=== PATIENT | male | born 1995 | race Caucasian/White ===

== ENCOUNTER 2017-08-24 20:51 | Emergency (ER) | payer OTHER ==
[2017-08-24] MEDS ORDERED: NORMAL SALINE 1000 ML 1,000 ML IV ONE ×2 (21:41→23:32)
[2017-08-24] MEDS ORDERED: LORAZEPAM INJ 2 MG/1 ML VIAL IV ONE ×2 (21:41→23:08)
--- NOTE | 2017-08-24 21:46 | ER Document Report ---
ED General - General TRAVEL OUTSIDE OF THE [place] 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 He states his chest intermittently feels tight. He denies specific pain in his chest, shortness of breath, he states he has not vomited although he feels nauseated. Symptoms started this evening, he states he felt a little "off" earlier in the day but before that he felt fine. He denies caffeine, any supplements, he denies any alcohol, denies any recreational drugs, denies any daily medications, denies smoking, denies any medical history. He denies taking anything tonight. He denies any history of similar symptoms. (ROLAND SRINIVASAN) - Related Data Allergies/Adverse Reactions: No Known Allergies Allergy (Unverified 08/24/17 20:53) Past Medical History - General Information source: Patient - Social History Smoking Status: Never Smoker Frequency of alcohol use: None Drug Abuse: None Lives with: Family Family History: Reviewed & Not Pertinent - Medical History Medical History: Negative Surgical Hx: Negative - Immunizations Immunizations up to date: Yes Hx Diphtheria, Pertussis, Tetanus Vaccination: Yes <ROLAND SRINIVASAN - Last Filed: 08/25/17 07:06> Review of Systems - Review of Systems Constitutional: See HPI EENT: No symptoms reported Cardiovascular: See HPI Respiratory: No symptoms reported Gastrointestinal: No symptoms reported Genitourinary: No symptoms reported Male Genitourinary: No symptoms reported Musculoskeletal: No symptoms reported Skin: No symptoms reported Hematologic/Lymphatic: No symptoms reported Neurological/Psychological: See HPI <ROLAND SRINIVASAN - Last Filed: 08/25/17 07:06> Physical Exam - Vital signs Interpretation: Normal - General General appearance: Alert, Anxious In distress: Moderate - Patient shaky and anxious in appearance - HEENT Head: Normocephalic, Atraumatic Eyes: Normal Pupils: PERRL - Respiratory Respiratory status: No respiratory distress Chest status: Nontender Breath sounds: Normal Chest palpation: Normal - Cardiovascular Rhythm: Regular, Tachycardia Heart sounds: Normal auscultation, S1 appreciated, S2 appreciated Murmur: No - Abdominal Inspection: Normal Distension: No distension Bowel sounds: Normal Tenderness: Nontender Organomegaly: No organomegaly - Back Back: Normal, Nontender - Extremities General upper extremity: Normal inspection, Nontender, Normal color, Normal ROM , Normal temperature General lower extremity: Normal inspection, Nontender, Normal color, Normal ROM , Normal temperature, Normal weight bearing. 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 Sensory: Normal - Psychological Associated symptoms: Anxious - Skin Skin Temperature: Warm Skin Moisture: Dry Skin Color: Normal <ROLAND SRINIVASAN - Last Filed: 08/25/17 07:06> - Vital signs Vitals: Temp Pulse Resp BP Pulse Ox 98.9 F 146 H 20 175/102 H 100 08/24/17 21:08 08/24/17 21:08 08/24/17 21:08 08/24/17 21:08 08/24/17 21:08 Course - Laboratory Result Diagrams: 08/24/17 21:47 08/24/17 21:47 <ROLAND SRINIVASAN - Last Filed: 08/25/17 07:06> - Laboratory Result Diagrams: 08/24/17 21:47 08/24/17 21:47 <KIA STEVE - Last Filed: 08/25/17 09:18> - Re-evaluation Re-evalutation: Patient tachycardic, has dilated pupils, appears anxious. Clear lungs, alert and oriented, unremarkable examination otherwise. Appears to be substance ingestion. 08/24/17 23:00 Patient initially told me that he has taken nothing. Patient denied alcohol but he does have a serum alcohol of 11. He states that he did drink beer despite what he told me earlier. He states that he also took 2 Advil, he denies taking anything else. Chest x-ray unremarkable. CBC and chemistry generally unremarkable. 08/25/17 02:10 Patient given 2 mg more of IV Ativan. After this tachycardia finally resolved, patient resting quietly. Clinical picture and presentation along with response to treatment is most consistent with substance abuse. Patient began bleeding from the right nare for a brief period which then resolved. Suggests cocaine use, no trauma, patient states he has had nosebleed in the past, nosebleed stopped quickly. He denies headache. He felt nauseated for a brief period. Discussed with Dr. Mancilla, he agrees with treatment, recommends adding KUB. Tachycardia continues to have resolved, patient is sleeping soundly, protecting airway, no change on reevaluation, sleeping and easily arousable. 08/25/17 05:00 On reexamination patient states he feels a lot better, when he stands he still feels somewhat lightheaded and his heart rate goes up in the 120s and 130s still. Will give additional fluid and give him more time. He still denies any recreational drugs. Drug screen is negative, however this is not a definite test. He is denying any chest pain or shortness of breath. Still have a low suspicion of pulmonary embolism, aortic dissection, ACS based on his presentation, age, reported symptoms, monitoring. (ROLAND SRINIVASAN) 08/25/17 09:15 I spent 15 minutes taking history again at 710 this morning to try to discern what is going on with this patient. His heart rate is 80s normal sinus rhythm until I walked in the room and it goes up to 130. 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 He states that he is under stress and has some feelings of panic but is not sure why he denies drug use. He is a 9-month-old and his has a new job in [place] for 2 weeks. He is getting very little sleep 2-3 hours and is now drinking monster drinks 2 a day which he did not use to do. midday after he got off work and picked up his he tried to go to sleep about 7 and would wake up alarmed, feeling short of breath. He is complaining of a 4/5 frontal headache with vertigo and the headache is now 1-1/2/5 after Compazine and Benadryl and Toradol. When I am sitting and talking with him initially his heart rate is 130 then he will go down to 117 as we talk. He appears very anxious shaking his leg but he cannot identify any psychological issues that is causing this. I discussed the case with Dr. Sonya rodrigues in again and we will be sending home and will have him follow-up with his sick call. I will recommend that he does not drink any monster drinks or any caffeine. BP 103/57. 08/25/17 09:18 (KIA STEVE) - Vital Signs Vital signs: Temp Pulse Resp BP Pulse Ox 98.9 F 146 H 17 105/57 L 96 08/24/17 21:08 08/24/17 21:08 08/25/17 09:00 08/25/17 09:00 08/25/17 09:00 - Laboratory Laboratory results interpreted by me: 08/24/17 21:47 Sodium 147.5 H Chloride 109 H ALT 15 L Salicylates < 1.0 L Acetaminophen < 10 L Discharge <ROLAND SRINIVASAN - Last Filed: 08/25/17 07:06> <KIA STEVE - Last Filed: 08/25/17 09:18> - Discharge Clinical Impression: Tachycardia Condition: Stable Disposition: HOME, SELF-CARE Additional Instructions: Rest. Avoid any stimulating substances for now including caffeine. Avoid any recreational substances such as cocaine, methamphetamine, etc. Follow up with primary care within the next several days or at least a week for a recheck and additional management. Return if you worsen including chest pain, difficulty breathing, passing out, fever, or any other concerning symptoms.
[2017-08-24 21:58] LABS: ABSOLUTE LYMPHOCYTES (AUTO) 2.1 10^3/uL (0.5-4.7); ABSOLUTE MONOCYTES (AUTO) 0.4 10^3/uL (0.1-1.4); ABSOLUTE NEUT (AUTO) 3.6 10^3/uL (1.7-8.2); BASOPHILS % (AUTO) 0.3 % (0-2); EOSINOPHILS % (AUTO) 0.5 % (0-6); HEMATOCRIT 44.3 % (37.9-51.0); HEMOGLOBIN 15.6 g/dL (13.5-17.0); HGB HCT DIFFERENCE 2.5; LYMPHOCYTES % (AUTO) 34.3 % (13-45); MEAN CORPUSCULAR HEMOGLOBIN 31.1 pg (27.0-33.4); MEAN CORPUSCULAR HGB CONC 35.3 g/dL (32.0-36.0); MEAN CORPUSCULAR VOLUME 88 fl (80-97); MONOCYTES % (AUTO) 6.8 % (3-13); RED BLOOD COUNT 5.02 10^6/uL (4.35-5.55); RED CELL DISTRIBUTION WIDTH 12.7 % (11.5-14.0); SEGMENTED NEUTROPHILS % (AUTO) 58.1 % (42-78); WHITE BLOOD COUNT 6.2 10^3/uL (4.0-10.5)
[2017-08-24 22:12] LABS: ALANINE AMINOTRANSFERASE 15 U/L (21-72); ALBUMIN 4.9 g/dL (3.5-5.0); ALCOHOL 11 mg/dL (NONE DETECTED); ALKALINE PHOSPHATASE 73 U/L (38-126); ANION GAP 14 (5-19); ASPARTATE AMINO TRANSFERASE 19 U/L (17-59); BILIRUBIN,DIRECT 0.2 mg/dL (0.0-0.4); BLOOD UREA NITROGEN 10 mg/dL (7-20); CALCIUM 9.8 mg/dL (8.4-10.2); CARBON DIOXIDE 25 mmol/L (22-30); CHLORIDE 109 mmol/L (98-107); CREATININE RESULT 0.91 mg/dL (0.52-1.25); GLUCOSE 94 mg/dL (75-110); POTASSIUM 3.7 mmol/L (3.6-5.0); SODIUM 147.5 mmol/L (137-145); TOTAL PROTEIN 7.7 g/dL (6.3-8.2)
--- NOTE | 2017-08-24 22:31 | RADIOLOGY REPORT (SQ) ---
EXAM DESCRIPTION: CHEST SINGLE VIEW COMPLETED DATE/TIME: 08/24/2017 10:14 pm REASON FOR STUDY: chest tightness, tachycardia COMPARISON: None. EXAM PARAMETERS: NUMBER OF VIEWS: One view. TECHNIQUE: Single frontal radiographic view of the chest acquired. RADIATION DOSE: NA LIMITATIONS: None. FINDINGS: LUNGS AND PLEURA: No opacities, masses or pneumothorax. No pleural effusion. MEDIASTINUM AND HILAR STRUCTURES: No masses. Contour normal. HEART AND VASCULAR STRUCTURES: Heart normal in size. Normal vasculature. BONES: No acute findings. HARDWARE: None in the chest. OTHER: No other significant finding. IMPRESSION: NO ACUTE RADIOGRAPHIC FINDING IN THE CHEST. TECHNICAL DOCUMENTATION: JOB ID: [id number] [place]-72 2010 [employer]- All Rights Reserved
[2017-08-24 23:30] LABS: URINE BARBITURATES SCREEN NEGATIVE; URINE METHADONE SCREEN NEGATIVE; URINE OPIATES LOW NEGATIVE; URINE PHENCYCLIDINE SCREEN NEGATIVE
[2017-08-25] MEDS ORDERED: LORAZEPAM INJ 2 MG/1 ML VIAL IV ONE (00:43)
--- NOTE | 2017-08-25 03:14 | RADIOLOGY REPORT (SQ) ---
EXAM DESCRIPTION: KUB/ABDOMEN (SINGLE VIEW) CLINICAL HISTORY: 21 years, Male, vomiting COMPARISON: None. NUMBER OF VIEWS: 2 LIMITATIONS: None. FINDINGS: No dilated bowel. No abnormal calcification. Partially imaged penis shaped 6 x 15 cm opacity overlies the lower pelvis may indicate penile/foreign body artifact. Intact bony structures. IMPRESSION: No acute findings. Indeterminate, partially imaged 6 x 15 cm opacity overlies the lower pelvis and may indicate penile/foreign body artifact. 2011 [employer]- All Rights Reserved
[2017-08-25] MEDS ORDERED: NORMAL SALINE 1000 ML 1,000 ML IV ONE (05:16)
[2017-08-25] MEDS ORDERED: DIPHENHYDRAMINE HCL 50 MG/ML VIAL IV ONE (07:41)
[2017-08-25] MEDS ORDERED: PROCHLORPERAZINE EDISYLATE INJ 10 MG/2 ML VIAL IV ONE (07:41)
[2017-08-25] MEDS ORDERED: KETOROLAC TROMETHAMINE INJ/PF 30 MG/1 ML SDV IV ONE (07:41)
--- NOTE | 2017-08-25 07:50 | EKG REPORT ---
SEVERITY:- ABNORMAL ECG - SINUS TACHYCARDIA WITH IRREGULAR RATE [id number] KEITH, CONSIDER BIATRIAL ABNORMALITIES IRBBB AND LPFB : Confirmed by: Naeem Reddy MD 25-Aug-2017 07:48:41
[2017-08-25 09:11] VITALS: BP 105/57
== END 2017-08-25 09:30 | disposition home or self-care (01) ==
LOC: ER 20:51
DX: F41.9 Anxiety disorder, unspecified (principal); R00.0 Tachycardia, unspecified; R42 Dizziness and giddiness; R07.89 Other chest pain; R11.0 Nausea; H57.04 Mydriasis; R04.0 Epistaxis; R51 Headache
CPT/HCPCS: 93005; 96376; 99284; 96361; 96374; 96375; 36415; 80307 ×4; 85025; 80053; 71010; 74000; 93010; J1200; J1885; J2060 ×2; J0780; J7030 ×2

== ENCOUNTER 2017-08-31 00:20 | Emergency (ER) | payer OTHER ==
[2017-08-31] MEDS ORDERED: HALOPERIDOL LACTATE INJ 5 MG/1 ML VIAL IV ONE (01:05)
[2017-08-31] MEDS ORDERED: NORMAL SALINE 1000 ML 1,000 ML IV ONE (01:05)
--- NOTE | 2017-08-31 02:06 | ER Document Report ---
ED General - General Chief Complaint: Vomiting Stated Complaint: VOMITING Time Seen by Provider: 08/31/17 01:03 Notes: Patient is a 21-year-old male who presents with 12 hours of progressively worsening headache with associated vomiting. Patient reports that after being seen on the prior occasion in the emergency room he had complete resolution of his symptoms. However he states today around noon he began to develop a progressive worsening dull, bitemporal, throbbing headache. Associated vomiting with a headache. Nothing improves or worsens his symptoms. He denies a history of similar symptoms in the past. He denies any fever, neck pain, chest pain, abdominal pain, or shortness of breath. Multiple sick contacts. No head trauma. He does admit to ongoing heavy use of energy drinks as well as continued lack of sleep after sleeping apparently only 2-4 hours per night. Denies any alcohol or drug use. TRAVEL OUTSIDE OF THE [place] IN LAST 30 DAYS: No - Related Data Allergies/Adverse Reactions: No Known Allergies Allergy (Unverified 08/24/17 20:53) Past Medical History - General Information source: Patient - Social History Smoking Status: Never Smoker Chew tobacco use (# tins/day): No Frequency of alcohol use: Social Drug Abuse: None Lives with: Spouse/Significant other Family History: Reviewed & Not Pertinent Patient has suicidal ideation: No Patient has homicidal ideation: No Renal/ Medical History: Denies: Hx Peritoneal Dialysis Past Surgical History: Reports: Hx Appendectomy - Immunizations Immunizations up to date: Yes Hx Diphtheria, Pertussis, Tetanus Vaccination: Yes Review of Systems - Review of Systems Notes: Constitutional: Negative for fever. HENT: Negative for sore throat. Eyes: Negative for visual changes. Cardiovascular: Negative for chest pain. Respiratory: Negative for shortness of breath. Gastrointestinal: Positive for vomiting Genitourinary: Negative for dysuria. Musculoskeletal: Negative for back pain. Skin: Negative for rash. Neurological: Positive for headache 10 point ROS negative except as marked above and in HPI. Physical Exam - Vital signs Vitals: Temp Pulse Resp BP Pulse Ox 98.4 F 139 H 18 121/55 L 99 08/31/17 00:41 08/31/17 00:41 08/31/17 00:41 08/31/17 00:41 08/31/17 00:41 Interpretation: Hypertensive, Tachycardic Notes: PHYSICAL EXAMINATION: GENERAL: Well-appearing, well-nourished and in no acute distress. HEAD: Atraumatic, normocephalic. EYES: Pupils equal round and reactive to light, extraocular movements intact, sclera anicteric, conjunctiva are normal. ENT: nares patent, oropharynx clear without exudates. Dry mucous membranes NECK: Normal range of motion, supple without lymphadenopathy LUNGS: Breath sounds clear to auscultation bilaterally and equal. No wheezes rales or rhonchi. HEART: Regular rate and rhythm without murmurs ABDOMEN: Soft, nontender, normoactive bowel sounds. No guarding, no rebound. No masses appreciated. EXTREMITIES: Normal range of motion, no pitting or edema. No cyanosis. NEUROLOGICAL: Face symmetric. Tongue protrudes midline. Extraocular motions intact. Pupils are 2 mm and equally reactive. Normal speech, normal gait. 5 out of 5 strength in both the distal and proximal upper and lower extremities bilaterally. Sensation is grossly intact throughout. Finger to nose testing normal. Pronator drift normal. PSYCH: Appears anxious. SKIN: Warm, Dry, normal turgor, no rashes or lesions noted. Course - Re-evaluation Re-evalutation: 08/31/17 02:01 Presentation of a headache that appears to be most consistent with tension versus migrainous type headache. Headache was not maximal in onset, patient has no focal neurologic deficits, no nuchal rigidity, vital signs within normal limits, no papilledema, and patient is overall well in appearance. Based on clinical history and examination I do not suspect an acute subarachnoid hemorrhage, dural venous sinus thrombosis, acute meningitis, or intercranial mass. Given my low clinical suspicion for any acute life-threatening etiology, I do not feel advanced neuro imaging is indicated at this time. Will obtain basic labs as patient is initially tachycardic but notes severe anxiety in healthcare settings and has been vomiting throughout the day today. Will proceed with headache cocktail and reassess. 08/31/17 02:44 Patient has had resolution of his tachycardia, headache and vomiting. He has tolerated oral intake without difficulty. At this time will discharge with return precautions and follow-up recommendations. Verbal discharge instructions given a the bedside and opportunity for questions given. Medication warnings reviewed. Patient is in agreement with this plan and has verbalized understanding of return precautions and the need for primary care follow-up in the next 24-72 hours. - Vital Signs Vital signs: Temp Pulse Resp BP Pulse Ox 98.4 F 139 H 11 L 120/77 98 08/31/17 00:41 08/31/17 00:41 08/31/17 02:31 08/31/17 02:31 08/31/17 02:31 - Laboratory Result Diagrams: 08/31/17 01:53 Laboratory results interpreted by me: 08/31/17 01:53 Calcium 10.7 H Total Bilirubin 1.4 H Albumin 5.2 H Discharge - Discharge Clinical Impression: Anxiety about health Headache Qualifiers: Headache type: unspecified Headache chronicity pattern: acute headache Intractability: not intractable Qualified Code(s): R51 - Headache Vomiting Qualifiers: Vomiting type: unspecified Vomiting Intractability: non-intractable Nausea presence: with nausea Qualified Code(s): R11.2 - Nausea with vomiting, unspecified Condition: Good Disposition: HOME, SELF-CARE Additional Instructions: You have been seen in the Emergency Department (ED) for a headache. Please use Tylenol (acetaminophen) or Motrin (ibuprofen) as needed for symptoms, but only as written on the box. As we have discussed, please follow up with your primary care doctor as soon as possible regarding today's ED visit and your headache symptoms. Call your doctor or return to the ED if you have a worsening headache, sudden and severe headache, confusion, slurred speech, facial droop, weakness or numbness in any arm or leg, extreme fatigue, or other symptoms that concern you.
[2017-08-31 02:25] LABS: ALANINE AMINOTRANSFERASE 21 U/L (21-72); ALBUMIN 5.2 g/dL (3.5-5.0); ALKALINE PHOSPHATASE 92 U/L (38-126); ANION GAP 16 (5-19); ASPARTATE AMINO TRANSFERASE 20 U/L (17-59); BILIRUBIN,DIRECT 0.2 mg/dL (0.0-0.4); BILIRUBIN,TOTAL 1.4 mg/dL (0.2-1.3); BLOOD UREA NITROGEN 14 mg/dL (7-20); CALCIUM 10.7 mg/dL (8.4-10.2); CARBON DIOXIDE 26 mmol/L (22-30); CHLORIDE 102 mmol/L (98-107); GLUCOSE 93 mg/dL (75-110); LIPASE 45.8 U/L (23-300); POTASSIUM 3.8 mmol/L (3.6-5.0); SODIUM 144.4 mmol/L (137-145)
[2017-08-31 02:29] LABS: A TYPE INFLUENZA AG NEGATIVE (NEGATIVE); B INFLUENZA AG NEGATIVE (NEGATIVE)
[2017-08-31 03:05] VITALS: BP 121/72
== END 2017-08-31 03:18 | disposition home or self-care (01) ==
LOC: ER 00:20
DX: R11.2 Nausea with vomiting, unspecified (principal); R51 Headache; F41.9 Anxiety disorder, unspecified
CPT/HCPCS: 99283; 96361; 96374; 36415; 83690; 80053; 87804; J1630; J7030

== ENCOUNTER 2018-03-12 21:32 | Emergency (ER) | payer OTHER ==
[2018-03-12 22:14] LABS: ABSOLUTE EOSINOPHILS # (AUTO) 0.1 10^3/uL (0.0-0.6); ABSOLUTE LYMPHOCYTES (AUTO) 3.6 10^3/uL (0.5-4.7); ABSOLUTE MONOCYTES (AUTO) 0.5 10^3/uL (0.1-1.4); ABSOLUTE NEUT (AUTO) 3.8 10^3/uL (1.7-8.2); BASOPHILS % (AUTO) 0.3 % (0-2); EOSINOPHILS % (AUTO) 0.8 % (0-6); HEMATOCRIT 44.2 % (37.9-51.0); HEMOGLOBIN 15.8 g/dL (13.5-17.0); LYMPHOCYTES % (AUTO) 44.3 % (13-45); MEAN CORPUSCULAR HEMOGLOBIN 31.3 pg (27.0-33.4); MEAN CORPUSCULAR HGB CONC 35.8 g/dL (32.0-36.0); MEAN CORPUSCULAR VOLUME 87 fl (80-97); MONOCYTES % (AUTO) 6.6 % (3-13); PLATELET COUNT 288 10^3/uL (150-450); RED BLOOD COUNT 5.06 10^6/uL (4.35-5.55); TOTAL CELLS COUNTED % (AUTO) 100 %
[2018-03-12 22:25] LABS: APPEARANCE,URINE CLEAR; BILIRUBIN,URINE NEGATIVE (NEGATIVE); COLOR,URINE YELLOW; GLUCOSE, URINE NEGATIVE (NEGATIVE); KETONES,URINE NEGATIVE (NEGATIVE); LEUKOCYTE ESTERASE,URINE NEGATIVE (NEGATIVE); NITRITE,URINE NEGATIVE (NEGATIVE); PROTEIN,URINE NEGATIVE (NEGATIVE); URINE SPECIFIC GRAVITY 1.024
[2018-03-12 23:25] LABS: ALANINE AMINOTRANSFERASE 17 U/L (21-72); ALBUMIN 5.1 g/dL (3.5-5.0); ALKALINE PHOSPHATASE 74 U/L (38-126); ANION GAP 14 (5-19); ASPARTATE AMINO TRANSFERASE 26 U/L (17-59); BILIRUBIN,DIRECT 0.4 mg/dL (0.0-0.4); BILIRUBIN,TOTAL 1.5 mg/dL (0.2-1.3); BLOOD UREA NITROGEN 14 mg/dL (7-20); CALCIUM 9.9 mg/dL (8.4-10.2); CARBON DIOXIDE 26 mmol/L (22-30); CHLORIDE 107 mmol/L (98-107); GLUCOSE 109 mg/dL (75-110); POTASSIUM 3.9 mmol/L (3.6-5.0); SODIUM 146.7 mmol/L (137-145); TOTAL PROTEIN 8.4 g/dL (6.3-8.2)
[2018-03-12] MEDS ORDERED: ONDANSETRON 4 MG TAB.RAPDIS PO ONE (23:42)
--- NOTE | 2018-03-12 23:44 | ER Document Report ---
ED General - General Chief Complaint: Nausea/Vomiting Stated Complaint: VOMITING Time Seen by Provider: 03/12/18 23:39 Mode of Arrival: Ambulatory Information source: Patient Notes: 22-year-old male presents emergency department with complaints of nausea and vomiting for the last 2 days. He states that his symptoms are intermittent in nature. Patient denies any alleviating or exacerbating factors. He denies any fever, chills, abdominal pain, diarrhea, constipation, dysuria, testicular pain , penile discharge, melena, hematochezia. Patient denies any medical problems. He is not on any medications. Patient denies any surgical history. Patient denies a history of sick contacts. TRAVEL OUTSIDE OF THE [place] IN LAST 30 DAYS: No - HPI Onset: Other - 2 days Onset/Duration: Gradual Quality of pain: No pain Severity: None Associated symptoms: Nausea, Vomiting Exacerbated by: Denies Relieved by: Denies Similar symptoms previously: No Recently seen / treated by doctor: No - Related Data Allergies/Adverse Reactions: No Known Allergies Allergy (Unverified 08/24/17 20:53) Past Medical History - Social History Smoking Status: Never Smoker Family History: Reviewed & Not Pertinent Renal/ Medical History: Denies: Hx Peritoneal Dialysis Past Surgical History: Reports: Hx Appendectomy - Immunizations Immunizations up to date: Yes Hx Diphtheria, Pertussis, Tetanus Vaccination: Yes Review of Systems - Review of Systems Constitutional: No symptoms reported EENT: No symptoms reported Cardiovascular: No symptoms reported Respiratory: No symptoms reported Gastrointestinal: Nausea, Vomiting Genitourinary: No symptoms reported Male Genitourinary: No symptoms reported Musculoskeletal: No symptoms reported Skin: No symptoms reported Neurological/Psychological: No symptoms reported -: Yes All other systems reviewed and negative Physical Exam - Vital signs Vitals: Temp Pulse Resp BP Pulse Ox 99.4 F 120 H 16 153/96 H 97 03/12/18 22:43 03/12/18 22:43 03/12/18 22:43 03/12/18 22:43 03/12/18 22:43 Interpretation: Normal, Tachycardic - Notes Notes: PHYSICAL EXAMINATION: GENERAL: Well-appearing, well-nourished and in no acute distress. HEAD: Atraumatic, normocephalic. EYES: Pupils equal round and reactive to light, extraocular movements intact, sclera anicteric, conjunctiva are normal. ENT: Nares patent, oropharynx clear without exudates. Moist mucous membranes. NECK: Normal range of motion, supple without lymphadenopathy LUNGS: Breath sounds clear to auscultation bilaterally and equal. No wheezes rales or rhonchi. HEART: Regular rate and rhythm without murmurs ABDOMEN: Soft, nontender, nondistended abdomen. No guarding, no rebound. No masses appreciated. Musculoskeletal: Normal range of motion, no pitting or edema. No cyanosis. NEUROLOGICAL: Cranial nerves grossly intact. Normal speech, normal gait. Normal sensory, motor exams PSYCH: Normal mood, normal affect. SKIN: Warm, Dry, normal turgor, no rashes or lesions noted. Course - Re-evaluation Re-evalutation: 03/13/18 00:11 Patient tachycardic. Will give fluids, zofra, and GI cocktail. 03/13/18 02:50 After patient received pepcid be began complaining of dizziness. EKG done and shows tachycardia. Patient denies chest pain, shortness of breath, abdominal pain. A second liter of fluids ordered. Patient still nauseated on re- evalution. Additional zofran ordered. 03/13/18 04:11 Patient re-evaluated. Tachycardia and nausea resolved. Patient feels comfortable with discharge home. I instructed patient to follow up with his PCP this week, to take medication as directed, and to return for worsening symptoms. - Vital Signs Vital signs: Temp Pulse Resp BP Pulse Ox 99.4 F 85 16 111/90 H 100 03/12/18 22:43 03/13/18 04:08 03/13/18 04:08 03/13/18 04:08 03/13/18 04:08 - Laboratory Result Diagrams: 03/12/18 21:50 03/12/18 21:50 Laboratory results interpreted by me: 03/12/18 03/12/18 21:50 21:50 Sodium 146.7 H Total Bilirubin 1.5 H ALT 17 L Total Protein 8.4 H Albumin 5.1 H Urine Blood SMALL H Urine Urobilinogen 4.0 H - EKG Interpretation by Me Additional EKG results interpreted by me: 03/13/18 01:48 EKG: Ventricular rate 127, UT interval 144, QRSD 102, QTc 448, sinus tachycardia , EKG similar to 08/24/17 Discharge - Discharge Clinical Impression: Nausea Condition: Good Disposition: HOME, SELF-CARE Instructions: Nausea or Vomiting, Nonspecific ([facility]) Prescriptions: Ondansetron [Zofran Odt 4 mg Tablet] 1 tab PO Q4H PRN #15 tab.rapdis PRN Reason: For Nausea/Vomiting Referrals: GABRIELLE PALMER MD [ACTIVE STAFF] - Follow up as needed
[2018-03-13] MEDS ORDERED: MAG HYDROX/AL HYDROX/SIMETH SUSP 30 ML UDCUP PO ONE (00:10)
[2018-03-13] MEDS ORDERED: NORMAL SALINE 1000 ML 1,000 ML IV ONE ×2 (00:10→01:37)
[2018-03-13] MEDS ORDERED: METOCLOPRAMIDE HCL ORAL SOLN 10 MG/10 ML UDCUP PO ONE (00:10)
[2018-03-13] MEDS ORDERED: LIDOCAINE 2% VISCOUS SOLN 20 ML UDCUP PO ONE (00:10)
[2018-03-13] MEDS ORDERED: FAMOTIDINE 20 MG TABLET PO ONE (00:11)
[2018-03-13] MEDS ORDERED: ONDANSETRON 4 MG TAB.RAPDIS PO ONE (02:46)
[2018-03-13] MEDS ORDERED: DIPHENHYDRAMINE HCL 50 MG/ML VIAL IV ONE (02:47)
[2018-03-13] MEDS ORDERED: ONDANSETRON 4 MG TAB.RAPDIS ONE (02:52)
[2018-03-13 04:09] VITALS: BP 111/90
--- NOTE | 2018-03-13 09:59 | EKG REPORT ---
SEVERITY:- BORDERLINE ECG - SINUS TACHYCARDIA CONSIDER RIGHT VENTRICULAR HYPERTROPHY : Confirmed by: Cristina Starr MD 13-Mar-2018 09:58:48
== END 2018-03-13 04:21 | disposition home or self-care (01) ==
LOC: ER 21:32
DX: R11.2 Nausea with vomiting, unspecified (principal); R00.0 Tachycardia, unspecified
CPT/HCPCS: 93005; 99284; 96361; 96374; 36415; 82962; 84703; 85025; 80053; 81001; 93010; J1200; S0119; J3490; J7030

== ENCOUNTER 2018-08-07 19:05 | Emergency (ER) | payer OTHER ==
[2018-08-07] MEDS ORDERED: ALPRAZOLAM 0.5 MG TABLET PO ONE (20:05)
[2018-08-07] MEDS ORDERED: ONDANSETRON 4 MG TAB.RAPDIS PO ONE (20:07)
--- NOTE | 2018-08-07 20:07 | ER Document Report ---
ED Medical Screen (RME) - General Chief Complaint: Palpitations Stated Complaint: FEELS SICK Time Seen by Provider: 08/07/18 20:00 Mode of Arrival: Ambulatory Information source: Patient Notes: 22-year-old male with no reported past medical history presents with complaint of palpitations, irritability, nausea. Patient states that he has drank 3 "bang " energy drinks all day. He states that he does not usually drink energy drinks. He states that after his third trip energy drink approximately 2 hours ago he began feeling palpitations and was tremulous. Patient denies chest pain , shortness of breath, headache. I have greeted and performed a rapid initial assessment of this patient. A comprehensive ED assessment and evaluation of the patient, analysis of test results and completion of medical decision making process we will be contacted by additional ED providers. PHYSICAL EXAMINATION: Vital signs reviewed GENERAL: Well-appearing, well-nourished and in no acute distress. LUNGS: No respiratory distress Musculoskeletal: Normal range of motion NEUROLOGICAL: Normal speech, normal gait. PSYCH: Normal mood, normal affect. SKIN: Warm, Dry, normal turgor, no rashes or lesions noted. TRAVEL OUTSIDE OF THE [place] IN LAST 30 DAYS: No - HPI Onset: Just prior to arrival Onset/Duration: Sudden Quality of pain: No pain Associated Symptoms: Nausea. denies: Chest pain, Shortness of breath Exacerbated by: Denies Relieved by: Denies Similar symptoms previously: No Recently seen / treated by doctor: No - Related Data Smoking: Non-smoker Frequency of alcohol use: Occasional Drug Abuse: None Allergies/Adverse Reactions: No Known Allergies Allergy (Verified 08/07/18 19:08) Past Medical History - Social History Chew tobacco use (# tins/day): No Frequency of alcohol use: Occasional Drug Abuse: None Renal/ Medical History: Denies: Hx Peritoneal Dialysis Past Surgical History: Reports: Hx Appendectomy - Immunizations Immunizations up to date: Yes Hx Diphtheria, Pertussis, Tetanus Vaccination: Yes Physical Exam - Vital signs Vitals: Temp Pulse Resp BP Pulse Ox 99.2 F 120 H 16 159/94 H 100 08/07/18 19:19 08/07/18 19:19 08/07/18 19:19 08/07/18 19:19 08/07/18 19:19 Course - Vital Signs Vital signs: Temp Pulse Resp BP Pulse Ox 99.2 F 120 H 16 159/94 H 100 08/07/18 19:19 08/07/18 19:19 08/07/18 19:19 08/07/18 19:19 08/07/18 19:19
--- NOTE | 2018-08-07 20:10 | EKG REPORT ---
SEVERITY:- ABNORMAL ECG - SINUS TACHYCARDIA INCOMPLETE RIGHT BUNDLE BRANCH BLOCK : Confirmed by: Jaswinder Joshua 07-Aug-2018 20:09:27
--- NOTE | 2018-08-07 21:42 | ER Document Report ---
ED General - General Chief Complaint: Palpitations Stated Complaint: PALPITATIONS Time Seen by Provider: 08/07/18 20:00 Mode of Arrival: Ambulatory Notes: Patient is a 26-year-old male presenting to the emergency department complaining of feeling like his heart is racing, weakness and dizziness. Patient states he does not typically partake in energy drinks but did drink 3 of them today. Patient states he also has not eaten very much food today. Patient states this afternoon he felt like his heart was racing he felt really weak and dizzy which is why he presents to the emergency room. RME provider did give the patient Xanax and Zofran. Patient states he continues to feel like his heart is racing he continues to feel weak and dizzy. States the medication we have given him has not helped at all. Pelvic examination patient's heart rate is 120. He is sitting in the bed not hyperventilating and does not appear anxious. Patient states along with his heart racing, dizziness and weakness he also feels nauseated. Patient denies any chest pain, shortness of breath, vomiting, diarrhea. Past medical history: None Medications: None Allergies: None Surgical history: None Patient denies cigarette smoking, admits to occasional EtOH use, denies illicit drug use. TRAVEL OUTSIDE OF THE [place] IN LAST 30 DAYS: No - Related Data Allergies/Adverse Reactions: No Known Allergies Allergy (Verified 08/07/18 19:08) Past Medical History - General Information source: Patient - Social History Smoking Status: Never Smoker Chew tobacco use (# tins/day): No Frequency of alcohol use: Occasional Drug Abuse: None Lives with: Alone Family History: Reviewed & Not Pertinent Patient has suicidal ideation: No Patient has homicidal ideation: No Renal/ Medical History: Denies: Hx Peritoneal Dialysis Past Surgical History: Reports: Hx Appendectomy - Immunizations Immunizations up to date: Yes Hx Diphtheria, Pertussis, Tetanus Vaccination: Yes Review of Systems - Review of Systems Constitutional: Weakness. denies: Chills, Fever EENT: See HPI Cardiovascular: See HPI Respiratory: See HPI Gastrointestinal: See HPI Genitourinary: No symptoms reported Male Genitourinary: No symptoms reported Musculoskeletal: No symptoms reported Skin: No symptoms reported Hematologic/Lymphatic: No symptoms reported Neurological/Psychological: See HPI Physical Exam - Vital signs Vitals: Temp Pulse Resp BP Pulse Ox 99.2 F 120 H 16 159/94 H 100 08/07/18 19:19 08/07/18 19:19 08/07/18 19:19 08/07/18 19:19 08/07/18 19:19 - Notes Notes: GENERAL: Alert, interacts well. No acute distress. HEAD: Normocephalic, atraumatic. EYES: Pupils equal, round, and reactive to light. Extraocular movements intact. ENT: Oral mucosa moist, tongue midline. NECK: Full range of motion. Supple. Trachea midline. LUNGS: Clear to auscultation bilaterally, no wheezes, rales, or rhonchi. No respiratory distress. HEART: Tachycardic rate and rhythm. No murmur ABDOMEN: Soft, non-tender. Non-distended. Bowel sounds present in all 4 quadrants. EXTREMITIES: Moves all 4 extremities spontaneously. No edema, normal radial and dorsalis pedis pulses bilaterally. No cyanosis. 5 out of 5 strength all 4 extremities. BACK: no cervical, thoracic, lumbar midline tenderness. No saddle anesthesia, normal distal neurovascular exam. NEUROLOGICAL: Alert and oriented x3. Normal speech. cranial nerves II through XII grossly intact PSYCH: Normal affect, normal mood. SKIN: Warm, dry, normal turgor. No rashes or lesions noted. Course - Re-evaluation Re-evalutation: 08/08/18 03:06 Lab work reveals no signs of leukocytosis, no signs of anemia, no signs of electrolyte abnormalities, no increase in the patient's troponin. Urine tox was negative. Patient's heart rate has come down to 88 at this time. He states he feels a lot better. Other vital signs within normal limits, will discharge. - Vital Signs Vital signs: Temp Pulse Resp BP Pulse Ox 99.2 F 102 H 20 153/85 H 100 08/07/18 19:19 08/08/18 00:52 08/08/18 00:52 08/07/18 23:11 08/08/18 00:52 - Laboratory Result Diagrams: 08/07/18 21:47 08/07/18 21:47 Laboratory results interpreted by me: 08/07/18 08/07/18 08/07/18 21:47 21:47 21:47 MCHC 36.5 H Seg Neutrophils % 85.6 H Lymphocytes % 10.3 L Calcium 10.6 H Creatine Kinase 235 H Total Protein 8.5 H Albumin 5.2 H Urine Protein 30 H Urine Urobilinogen 2.0 H Urine Ascorbic Acid 20 H Discharge - Discharge Clinical Impression: Tachycardia Caffeine adverse reaction Qualifiers: Encounter type: initial encounter Qualified Code(s): T43.615A - Adverse effect of caffeine, initial encounter Condition: Stable Disposition: HOME, SELF-CARE Instructions: Sinus Tachycardia ([facility]) Additional Instructions: As we discussed you have been seen and treated in the emergency department for caffeine abuse. Please do not drink energy drinks anymore. Please follow-up with your primary care provider in the next 24-48 hours. Please return to the emergency room for any other concerning symptoms.
[2018-08-07 22:19] LABS: ABSOLUTE MONOCYTES (AUTO) 0.4 10^3/uL (0.1-1.4); ABSOLUTE NEUT (AUTO) 8.2 10^3/uL (1.7-8.2); BASOPHILS % (AUTO) 0.2 % (0-2); HEMATOCRIT 42.5 % (37.9-51.0); HEMOGLOBIN 15.5 g/dL (13.5-17.0); LYMPHOCYTES % (AUTO) 10.3 % (13-45); MEAN CORPUSCULAR HEMOGLOBIN 31.4 pg (27.0-33.4); MEAN CORPUSCULAR HGB CONC 36.5 g/dL (32.0-36.0); MEAN CORPUSCULAR VOLUME 86 fl (80-97); MONOCYTES % (AUTO) 3.9 % (3-13); PLATELET COUNT 308 10^3/uL (150-450); RED BLOOD COUNT 4.92 10^6/uL (4.35-5.55); RED CELL DISTRIBUTION WIDTH 12.2 % (11.5-14.0); SEGMENTED NEUTROPHILS % (AUTO) 85.6 % (42-78); TOTAL CELLS COUNTED % (AUTO) 100 %; WHITE BLOOD COUNT 9.6 10^3/uL (4.0-10.5)
[2018-08-07 22:25] LABS: APPEARANCE,URINE CLEAR; BILIRUBIN,URINE NEGATIVE (NEGATIVE); COLOR,URINE YELLOW; GLUCOSE, URINE NEGATIVE (NEGATIVE); KETONES,URINE NEGATIVE (NEGATIVE); LEUKOCYTE ESTERASE,URINE NEGATIVE (NEGATIVE); NITRITE,URINE NEGATIVE (NEGATIVE); PROTEIN,URINE 30 mg/dL (NEGATIVE); URINE SPECIFIC GRAVITY 1.011
[2018-08-07 22:32] LABS: ALANINE AMINOTRANSFERASE 25 U/L (21-72); ALBUMIN 5.2 g/dL (3.5-5.0); ALKALINE PHOSPHATASE 87 U/L (38-126); ANION GAP 16 (5-19); ASPARTATE AMINO TRANSFERASE 34 U/L (17-59); BILIRUBIN,DIRECT 0.1 mg/dL (0.0-0.4); BILIRUBIN,TOTAL 1.1 mg/dL (0.2-1.3); BLOOD UREA NITROGEN 12 mg/dL (7-20); CALCIUM 10.6 mg/dL (8.4-10.2); CARBON DIOXIDE 24 mmol/L (22-30); CHLORIDE 102 mmol/L (98-107); CREATINE KINASE 235 U/L (55-170); GLUCOSE 110 mg/dL (75-110); POTASSIUM 4.1 mmol/L (3.6-5.0); SODIUM 142.4 mmol/L (137-145); TOTAL PROTEIN 8.5 g/dL (6.3-8.2)
[2018-08-07 22:41] LABS: URINE AMPHETAMINES SCREEN NEGATIVE; URINE BARBITURATES SCREEN NEGATIVE; URINE BENZODIAZEPINES SCREEN NEGATIVE; URINE COCAINE SCREEN NEGATIVE; URINE MARIJUANA (THC) SCREEN NEGATIVE; URINE METHADONE SCREEN NEGATIVE; URINE PHENCYCLIDINE SCREEN NEGATIVE
[2018-08-07] MEDS ORDERED: NORMAL SALINE 1000 ML 1,000 ML IV ONE ×2 (22:42→23:06)
--- NOTE | 2018-08-07 22:43 | RADIOLOGY REPORT (SQ) ---
EXAM DESCRIPTION: XR CHEST 2 VIEWS COMPLETED DATE/TME: 08/07/2018 21:40 CLINICAL HISTORY: 22 years, Male, weakness COMPARISON: 08/24/2017 NUMBER OF VIEWS: Two TECHNIQUE: PA and lateral views of the chest LIMITATIONS: None. FINDINGS: Cardiomediastinal silhouette is within normal limits. No lung consolidate. No pleural effusion. No pneumothorax. Osseous structures are without acute finding. IMPRESSION: No acute chest finding. copyright 2010 [employer]- All Rights Reserved
[2018-08-07 22:51] LABS: TROPONIN I < 0.012 ng/mL
[2018-08-07] MEDS ORDERED: LORAZEPAM INJ 2 MG/1 ML VIAL IV ONE (23:28)
[2018-08-08] MEDS ORDERED: LORAZEPAM INJ 2 MG/1 ML VIAL IV ONE (01:51)
[2018-08-08 03:25] VITALS: BP 121/63
== END 2018-08-08 03:24 | disposition home or self-care (01) ==
LOC: ER 19:05
DX: R00.0 Tachycardia, unspecified (principal); T43.615A Adverse effect of caffeine, initial encounter; R53.1 Weakness; R42 Dizziness and giddiness; R11.0 Nausea
CPT/HCPCS: 93005; 96376; 99285; 96361; 96374; 36415; 82553; 82550; 85025; 80053; 81001; 84484; 80307; 71046; 93010; S0119; J2060; J7030 ×2